=== PATIENT | female | born 1985 | race Caucasian/White ===

== ENCOUNTER 2017-10-11 08:38 | Emergency (ER) | payer OTHER ==
[~2017-10-11] VITALS: Ht 152.4 cm; Wt 49.9 kg
[~2017-10-11 08:38] MED LIST: DICLOFENAC SODI75 MG PO; MEDROL4 MG PO; NORCO 5-325 TA1 EACH PO; TRAMADOL HCL50 MG PO
[2017-10-11] MEDS ORDERED: ASPIRIN325 MG PO (08:48)
--- NOTE | 2017-10-11 22:42 | EKG ---
[facility] [address] [facility] [place] [address] Signed Normal sinus rhythm with sinus arrhythmia Normal ECG When compared with ECG of 29-JUN-2016 09:31, No significant change was found Confirmed by JEET GU MD ([id number] on 10/11/2017 10:42:19 PM Electronically Signed By: JEET GU MD 10/11/17 [id number] PATIENT NAME: SHANELL ALCANTAR Electrocardiogram DATE OF : 83 PHYSICIAN: JEET GU MD REPORT #: [id number] REPORT IS CONFIDENTIAL AND NOT TO BE RELEASED WITHOUT AUTHORIZATION
== END 2017-10-11 09:25 | disposition home or self-care (01) ==
LOC: ED 08:38
DX: S44.92XA Injury of unspecified nerve at shoulder and upper arm level, left arm, initial encounter (principal); M62.838 Other muscle spasm; F17.210 Nicotine dependence, cigarettes, uncomplicated; G40.909 Epilepsy, unspecified, not intractable, without status epilepticus; Z88.5 Allergy status to narcotic agent; Z79.899 Other long term (current) drug therapy; X58.XXXA Exposure to other specified factors, initial encounter
CPT/HCPCS: 93005; 93010; 99284

== ENCOUNTER 2019-08-09 02:32 | Emergency (ER) | payer OTHER ==
[~2019-08-09] VITALS: Ht 152.4 cm; Wt 56.7 kg
[~2019-08-09 02:32] MED LIST changes: +ASPIRIN325 MG PO
== END 2019-08-09 04:20 | disposition home or self-care (01) ==
LOC: ED 02:32
DX: S00.83XA Contusion of other part of head, initial encounter (principal); S49.91XA Unspecified injury of right shoulder and upper arm, initial encounter; Y04.8XXA Assault by other bodily force, initial encounter; F17.200 Nicotine dependence, unspecified, uncomplicated; Z88.5 Allergy status to narcotic agent
CPT/HCPCS: 70450; 70486; 73030; 99284-25

== ENCOUNTER 2020-07-04 16:27 | Emergency (ER) | payer OTHER ==
[~2020-07-04] VITALS: Ht 152.4 cm; Wt 49.9 kg
[2020-07-04] MEDS ORDERED: NORCO 5-325 TA1 EACH PO (18:58)
== END 2020-07-04 19:22 | disposition home or self-care (01) ==
LOC: ED 16:27
DX: M24.412 Recurrent dislocation, left shoulder (principal); F17.200 Nicotine dependence, unspecified, uncomplicated; Z88.5 Allergy status to narcotic agent
CPT/HCPCS: 23650; 73030; 99152; 99283-25; J1170; J2405

== ENCOUNTER 2021-09-18 14:15 | Emergency (ER) | payer OTHER ==
[~2021-09-18] VITALS: Ht 152.4 cm; Wt 54.4 kg
[~2021-09-18 14:15] MED LIST changes: +DICLOFENAC SODI50 MG PO; +HYDROCODON-ACE1 EA10 PO
[2021-09-18] MEDS ORDERED: ONDANSETRON ODT4 MG SL (16:10)
[2021-09-18] MEDS ORDERED: DILAUDID2 MG PO (16:10)
[2021-09-18] MEDS ORDERED: DICYCLOMINE HCL10 MG PO (16:10)
== END 2021-09-18 17:01 | disposition home or self-care (01) ==
LOC: ED 14:15
DX: K52.9 Noninfective gastroenteritis and colitis, unspecified (principal); G40.909 Epilepsy, unspecified, not intractable, without status epilepticus; Z87.891 Personal history of nicotine dependence; Z20.822 Contact with and (suspected) exposure to COVID-19; Z88.5 Allergy status to narcotic agent; Z79.899 Other long term (current) drug therapy
CPT/HCPCS: 74177; 80053; 81001; 83690; 84703; 85025; 96375; 96376; 99284-25; C9803; J1170; J1885; J2060; J2405; J7030; Q9967; U0003

== ENCOUNTER 2024-06-30 14:13 | Emergency (ER) | payer OTHER ==
[~2024-06-30] VITALS: Ht 152.4 cm; Wt 53.0 kg
[~2024-06-30 14:13] MED LIST changes: +DICYCLOMINE HCL10 MG PO; +DILAUDID2 MG PO; +ONDANSETRON ODT4 MG SL
[2024-06-30] MEDS ORDERED: TYLENOL EXTRA500 MG PO (14:30)
[2024-06-30] MEDS ORDERED: SUMAtriptan succinate 6 MG/0.5 ML VIAL SUB-Q ONE (15:15)
[2024-06-30 16:30] VITALS: BP 106/67
== END 2024-06-30 16:36 | disposition home or self-care (01) ==
LOC: ED 14:13
DX: R51.9 Headache, unspecified (principal); Z87.891 Personal history of nicotine dependence; Z88.5 Allergy status to narcotic agent
CPT/HCPCS: 99283; J3030